=== PATIENT | male | born 1955 | race African-American/Black ===

== ENCOUNTER 2016-05-11 21:23 | Emergency (ER) | payer MEDICARE, OTHER ==
[~2016-05-11] VITALS: Ht 190.5 cm; Wt 119.0 kg
[~2016-05-11 21:23] MED LIST: CIPR500T4 PO; PROM25SU8 PO; PYRI200T4 PO; VICOTAB4 PO
[2016-05-11 21:28] VITALS: BP 150/102; PULSE 76; RESP 16; TEMP 97.6; O2SAT 98
[2016-05-11 21:55] VITALS: BP 159/94; PULSE 74; RESP 16; O2SAT 96
--- NOTE | 2016-05-11 22:22 | PD ---
HPI Chief Complaint: Hypertension Time Seen by Provider: 22:08 Travel History International Travel<30 days: No Contact w/Intl Traveler<30days: No Traveled to known affect area: No History of Present Illness HPI The patient is a 60-year-old male with no history of hypertension who stated his blood pressure was high when he took it at home, 160/120. He denies any chest pain, shortness of breath, abdominal pain, focal neurologic change but does have a slight headache when she calls a sinus headache in the left sphenoid sinus area. He feels the headache behind and medial to his left eye. He is a smoker and smokes 5 cigars daily. His primary care physician, Dr. Torres , has seen him before for these headaches. [facility] Past Medical History Musculoskeletal: Yes (back pain) Social History Alcohol Use: No Tobacco Use: Yes (1.5 ppd) Substance Use: No Allergies-Medications (Allergen,Severity, Reaction): Coded Allergies: Penicillin (Verified Allergy, Unknown, 08/16/11) Reported Meds & Prescriptions Reported Meds & Active Scripts Active Phenergan (Promethazine HCl) 25 Mg Tab 25 Mg PO Q6-8HPRN FOR NAUSEA/VOMITING Cipro (Ciprofloxacin HCl) 500 Mg Tab 500 Mg PO BID Pyridium (Phenazopyridine HCl) 200 Mg Tab 200 Mg PO Q8HPRN Reported Vicoprofen (Hydrocodone Bitartrate/Ibuprofen) 7.5 Mg/200 Mg Tab 1 Tab PO BID Review of Systems Except as stated in HPI: all other systems reviewed are Neg Physical Exam Narrative GENERAL: The patient is alert, oriented 3 and minimal apparent distress with his minimal left nasal area headache. His vital signs initially show blood pressure 150/102 but repeat vital signs show 159/94. The rest of his vital signs are normal. SKIN: Warm and dry. HEAD: Atraumatic. Normocephalic. EYES: Pupils equal and round. No scleral icterus. No injection or drainage. ENT: No nasal bleeding or discharge. Mucous membranes pink and moist. NECK: Trachea midline. No JVD. There is no meningismus and the patient can flex neck fully so that the chin touches the chest. CARDIOVASCULAR: Regular rate and rhythm. No murmur appreciated. RESPIRATORY: No accessory muscle use. Clear to auscultation. Breath sounds equal bilaterally. GASTROINTESTINAL: Abdomen soft, non-tender, nondistended. Hepatic and splenic margins not palpable. MUSCULOSKELETAL: No obvious deformities. No clubbing. No cyanosis. No edema. NEUROLOGICAL: Awake and alert. No obvious cranial nerve deficits. Motor grossly within normal limits. Normal speech and gait. PSYCHIATRIC: Appropriate mood and affect; insight and judgment normal. Data Data Last Documented VS Vital Signs Date Time Temp Pulse Resp B/P Pulse Ox O2 Delivery O2 Flow Rate FiO2 05/11/16 21:28 97.6 76 16 150/102 98 MDM Medical Decision Making Medical Screen Exam Complete: Yes Emergency Medical Condition: Yes Medical Record Reviewed: Yes Differential Diagnosis Hypertension, transiently elevated blood pressure, sinus pain, tobacco abuse Narrative Course The patient does have a transiently elevated blood pressure. At this time it does not appear safe to start treating him with antihypertensives, Dr. Victor Manuel Jacob should determine in her office that blood pressure medications are necessary. The patient should discontinue smoking however. Diagnosis Primary Impression: Transient elevated blood pressure Additional Impressions: Sinus headache Tobacco abuse Additional Instructions: As we discussed, discontinue smoking. This could help years sinus headache and it could help your blood pressure. Follow-up with Dr. Darrius Jacob so that she can determine whether or not he need blood pressure medications. Disposition: 01 DISCHARGE HOME Condition: Stable Capo Massey MD May 11, 2016 22:21
[2016-05-11] MEDS ORDERED: TURM1CAP4 (22:31)
[2016-05-11] MEDS ORDERED: METF500T PO (22:31)
[2016-05-11] MEDS ORDERED: HYDR-3580 PO (22:31)
[2016-05-11] MEDS ORDERED: OMEG100037 PO (22:31)
[2016-05-11] MEDS ORDERED: ASPI1TAB69 PO (22:31)
[2016-05-11] MEDS ORDERED: MULTTAB67 PO (22:31)
[2016-05-11 22:45] VITALS: BP 173/102; PULSE 74; RESP 16; O2SAT 98
[2016-05-11 22:50] VITALS: BP 157/96; PULSE 73; RESP 16; O2SAT 98
== END 2016-05-11 23:10 | disposition home or self-care (01) ==
LOC: PHED 21:23
DX: R03.0 Elevated blood-pressure reading, without diagnosis of hypertension (principal); R51 Headache; F17.200 Nicotine dependence, unspecified, uncomplicated; Z87.39 Personal history of other diseases of the musculoskeletal system and connective tissue
CPT/HCPCS: 99283

== ENCOUNTER 2017-01-01 04:34 | Emergency (ER) | payer MEDICARE ==
[~2017-01-01] VITALS: Ht 190.5 cm; Wt 125.1 kg
[~2017-01-01 04:34] MED LIST changes: +ASPI1TAB69 PO; -CIPR500T4 PO; +HYDR-3580 PO; +METF500T PO; +MULTTAB67 PO; +OMEG100037 PO; -PROM25SU8 PO; -PYRI200T4 PO; +TURM1CAP4; -VICOTAB4 PO
[2017-01-01 04:40] VITALS: BP 150/94; PULSE 96; RESP 18; TEMP 97.6; O2SAT 95
[2017-01-01 04:50] VITALS: BP 150/94; PULSE 96; TEMP 97.6; O2SAT 95
[2017-01-01] MEDS ORDERED: ASPI81TA11 PO (05:09)
[2017-01-01] MEDS ORDERED: LISI-515 PO (05:09)
--- NOTE | 2017-01-01 05:12 | PD ---
HPI Chief Complaint: Complaint Time Seen by Provider: 05:00 Travel History International Travel<30 days: No Contact w/Intl Traveler<30days: No Traveled to known affect area: No History of Present Illness HPI The patient is a 61-year-old male who complains of dysuria, frequency and urgency head 6 PM yesterday. At 2 AM he noticed blood in his urine. He denies any nausea, vomiting, diarrhea or flank pain. He denies any fever. He does have a history of hypertension, chronic back pain and metformin controlled diabetes mellitus. His only anticoagulant is 81 mg aspirin which she takes daily. He does not have a history of bladder cancer or prostate cancer. PFSH Past Medical History Cardiovascular Problems: Yes (HTN) Diabetes: Yes Patient Takes Glucophage: No Diminished Hearing: No Hypertension: Yes Musculoskeletal: Yes (CHRONIC BACK PAIN) Tetanus Vaccination: Unknown ?: Not Past Surgical History Surgical History: No Previous Surgery Social History Alcohol Use: No Tobacco Use: No (5 CIGARS DAILY) Substance Use: No Allergies-Medications (Allergen,Severity, Reaction): Coded Allergies: penicillin G (Unverified Allergy, Unknown, 01/01/17) Reported Meds & Prescriptions Reported Meds & Active Scripts Active Pyridium (Phenazopyridine HCl) 100 Mg Tab 100 Mg PO Q8H PRN Macrobid (Nitrofurantoin Monoh/Nitrofur Macro) 100 Mg Cap 100 Mg PO BID 10 Days Reported Aspirin EC (Aspirin) 81 Mg Tabdr 81 Mg PO DAILY Lisinopril 20 Mg Tab 20 Mg PO DAILY Metformin (Metformin HCl) 500 Mg Tab 500 Mg PO BIDPC With meals Hydrocodone-Acetaminophen 7.5-325 mg Tab 1 Tab PO Q6H PRN Review of Systems Except as stated in HPI: all other systems reviewed are Neg Physical Exam Narrative GENERAL: The patient is alert, oriented 3 in no apparent distress. His vital signs show blood pressure 150/94 and heart rate of 96 but are otherwise normal. SKIN: Focused skin assessment warm/dry. HEAD: Atraumatic. Normocephalic. EYES: Pupils equal and round. No scleral icterus. No injection or drainage. ENT: No nasal bleeding or discharge. Mucous membranes pink and moist. NECK: Trachea midline. No JVD. CARDIOVASCULAR: Regular rate and rhythm. No murmur appreciated. RESPIRATORY: No accessory muscle use. Clear to auscultation. Breath sounds equal bilaterally. GASTROINTESTINAL: Abdomen soft, non-tender, nondistended. Hepatic and splenic margins not palpable. No guarding or rebound is present. There is no bladder tenderness and no flank tenderness. MUSCULOSKELETAL: No obvious deformities. No clubbing. No cyanosis. No edema. NEUROLOGICAL: Awake and alert. No obvious cranial nerve deficits. Motor grossly within normal limits. Normal speech. PSYCHIATRIC: Appropriate mood and affect; insight and judgment normal. Data Data Last Documented VS Vital Signs Date Time Temp Pulse Resp B/P (MAP) Pulse Ox O2 Delivery O2 Flow Rate FiO2 01/01/17 04:50 97.6 96 150/94 (112) 95 01/01/17 04:40 18 Orders Orders Urinalysis - C+S If Indicated (01/01/17 05:00) Urine Culture (01/01/17 05:10) Phenazopyridine (Pyridium) (01/01/17 06:15) Nitrofurantoin Monohyd Macrocr (Macrobid (01/01/17 06:15) Labs Laboratory Tests Test 01/01/17 05:10 Urine Color BROWN Urine Turbidity CLOUDY Urine pH 5.0 Urine Specific [place] 1.021 Urine Protein 300 OR GREATER mg/dL Urine Glucose (UA) 100 mg/dL Urine Ketones NEG mg/dL Urine Occult Blood LARGE Urine Nitrite POS Urine Bilirubin NEG Urine Leukocyte Esterase NEG Urine RBC 100-200 /hpf Urine WBC 15-19 /hpf Urine WBC Clumps FEW Urine Squamous Epithelial Cells 0-5 /hpf Urine Bacteria RARE /hpf Urine Yeast (Budding) FEW Microscopic Urinalysis Comment CULTURE INDICATED MDM Medical Decision Making Medical Screen Exam Complete: Yes Emergency Medical Condition: Yes Medical Record Reviewed: Yes Interpretation(s) The urine shows brown color, cloudy turbidity, 300 or greater protein, 100 or greater glucose with large blood and positive nitrite and 15-19 white cells and few white cell clumping's with rare bacteria and culture is indicated. Differential Diagnosis Urinary tract infection-cystitis UTI-pyelonephritis, bladder cancer, prostate cancer Narrative Course The patient has a urinary tract infection, likely cystitis. The urine is grossly bloody and there is concern for bladder/prostate cancer. He needs to follow-up with urologist to be checked for these possibilities. He does not have any nausea, vomiting, fever or flank pain and pyelonephritis is unlikely. Plan: The patient be put on Macrobid for 10 days and increase his liquid intake and follow-up with urology. He will also get Pyridium for symptoms. Diagnosis Primary Impression: Cystitis Additional Impression: Gross hematuria Additional Instructions: As we discussed, follow-up with urology. He can check you for prostate/bladder cancer. These are possibilities when you have a grossly bloody urine. The Macrobid is one tablet twice daily for 10 days. Scripts Phenazopyridine (Pyridium) 100 Mg Tab 100 MG PO Q8H Y for DYSURIA, #20 TAB 0 Refills Prov: Capo Massey MD 01/01/17 Nitrofurantoin Monohydrate Macrocrystals (Macrobid) 100 Mg Cap 100 MG PO BID for Infection for 10 Days, #20 CAP 0 Refills Prov: Capo Massey MD 01/01/17 Disposition: 01 DISCHARGE HOME Condition: Stable Capo Massey MD Jan 01, 2017 05:11
[2017-01-01 05:54] LABS: BLOOD, URINE LARGE (NEG); GLUCOSE,URINE 100 mg/dL (NEG); KETONE, URINE NEG (NEG); NITRITE,URINE POS (NEG)
[2017-01-01 05:58] LABS: URINE COLOR BROWN (YELLW/STRAW)
[2017-01-01 05:59] LABS: BACTERIA, URINE RARE /hpf; RBC, URINE 100-200 /hpf (0-3); SQUAMOUS EPITHELIAL CELL URINE 0-5 /hpf (0-5); WBC, URINE 15-19 /hpf (0-5)
[2017-01-01 06:00] LABS: COMMENT (UR) CULTURE INDICATED; CULTURE IF INDICATED CULTURE INDICATED
[2017-01-01] MEDS ORDERED: MACR100C2 PO (06:01)
[2017-01-01] MEDS ORDERED: PHEN0.4T PO (06:01)
[2017-01-01 06:14] VITALS: BP 139/87
[2017-01-01] MEDS ORDERED: NITROFURANTOIN MONOHYD MACROCR 100 MG CAP PO ONE (06:15)
[2017-01-01] MEDS ORDERED: PHENAZOPYRIDINE HCL 100 MG TAB PO ONE (06:15)
== END 2017-01-01 07:00 | disposition home or self-care (01) ==
LOC: PHED 04:34
DX: N30.91 Cystitis, unspecified with hematuria (principal); B96.20 Unspecified Escherichia coli [E. coli] as the cause of diseases classified elsewhere; E11.9 Type 2 diabetes mellitus without complications; I10 Essential (primary) hypertension; Z79.84 Long term (current) use of oral hypoglycemic drugs; Z87.891 Personal history of nicotine dependence
CPT/HCPCS: 81001; 87077; 87086; 87186; 99283